=== PATIENT | female | born 1990 | race Caucasian/White ===

== ENCOUNTER → 2017-06-30 | Outpatient (CLI) | payer OTHER ==
[~2017-06-30] MED LIST: BENTYL10 M1 PO; CIPRO PO; IRON SUPPLEMENT1 TAB PO; NORCO1 TAB 10/3 PO; PHENERGAN25 M1 PO; PRENATAL1 TA1 PO; ZOFRAN ODT4 MG/UDTAB PO
--- NOTE | ~2017-06-30 | CR127 ---
[facility] A Service of [facility] & [facility] RADIOLOGY TEXT RESULTS PATIENT: TERA LUNA LOCATION: [facility] : [birth year] UNIT #: [id number] AGE: [address]: Jovanni Chiu MD SEX: F ORDER DR: [id number] [place] [id number] O MR#: [id number] Acc #: [id number] NAME: TERA LUNA : 1990 SEX: F STUDY DATE/TIME: 06/30/2017 9:49 UNIT: [facility] ROOM: STUDY DESCRIPTION: CR Foot Complete Min 3 View Rt Attending Physician: Jovanni Chiu M.D. Referring Physician: Jovanni Chiu M.D. Ordering Physician: Jovanni Chiu M.D. Primary Care Physician: Jovanni Chiu M.D. MEDICAL IMAGING REPORT This report is preliminary unless electronic signature is present. EXAM Right foot 3 views 06/30/2017 HISTORY Right foot pain laterally after hitting foot on a bed frame 1 week ago. FINDINGS The tarsal, metatarsal, and phalangeal elements are all anatomically normal in position and alignment. There are no articular defects. No fractures or radiopaque foreign bodies in the soft tissues are apparent. IMPRESSION Normal foot. Dictated by... Scott Ruiz M.D. THIS IS AN ELECTRONICALLY VERIFIED REPORT Scott Ruiz M.D. at 07/01/2017 7:33 AM JIN/ann-marie TD: 06/30/2017 12:43 JOB #: [id number] MEDICAL IMAGING REPORT Page 1 of 1
== END | disposition home or self-care (01) ==
LOC: SRAD 09:43
DX: M79.671 Pain in right foot (principal)
CPT/HCPCS: 73630